=== PATIENT | female | born 1990 | race Caucasian/White ===

== ENCOUNTER → 2017-12-23 | Emergency (ER) | payer OTHER ==
[~2017-12-23] VITALS: Ht 157.5 cm; Wt 59.0 kg
[~2017-12-23] MED LIST: NASONEX17 GM NS; XYZAL5 MG PO
== END | disposition home or self-care (01) ==
LOC: ER 17:42
DX: K29.70 Gastritis, unspecified, without bleeding (principal)

== ENCOUNTER 2022-01-12 03:01 | Emergency (ER) | payer OTHER ==
[~2022-01-12] VITALS: Ht 157.5 cm; Wt 63.5 kg
== END 2022-01-12 13:59 | disposition home or self-care (01) ==
LOC: ER 03:01
DX: R10.32 Left lower quadrant pain (principal); N83.202 Unspecified ovarian cyst, left side; D25.9 Leiomyoma of uterus, unspecified

== ENCOUNTER 2022-01-20 07:37 | Outpatient (CLI) | payer OTHER | END 2022-01-20 07:51 | disposition home or self-care (01) | LOC: MRI 07:37 | PROVIDERS: ATTEND Obstetrics & Gynecology | DX: N95.2 Postmenopausal atrophic vaginitis (principal); D25.1 Intramural leiomyoma of uterus; R10.814 Left lower quadrant abdominal tenderness; R10.32 Left lower quadrant pain | CPT/HCPCS: 72197 ==